=== PATIENT | female | born 1970 | race Asian ===

== ENCOUNTER 2016-05-01 21:28 | Inpatient (IN) | payer MEDICARE ==
[~2016-05-01] VITALS: Ht 147.3 cm; Wt 70.8 kg
[2016-05-01 22:50] LABS: BASO # 0.1 x10^3/uL (0.0-0.2); BASO % 1 % (0-3); EOS % 3 % (0-3); HEMATOCRIT 43.9 % (36.0-47.0); HEMOGLOBIN 14.7 g/dL (12.0-15.5); LYMPH # 6.8 x10^3/uL (1.0-4.8); LYMPH % 52 % (24-48); MEAN CORPUSCULAR HEMOGLOBIN 30 pg (25-35); MEAN CORPUSCULAR HGB CONC 34 g/dL (31-37); MEAN CORPUSCULAR VOLUME 90 fL (79-100); MONO % 4 % (0-9); NEUT % 41 % (31-73); PLATELET COUNT 302 x10^3/uL (140-400); RED CELL DISTRIBUTION WIDTH 12.9 % (11.5-14.5); WHITE BLOOD COUNT 13.2 x10^3/uL (4.0-11.0)
[2016-05-01] MEDS ORDERED: LABETALOL 20 MG/4 ML DISP.SYRIN. IVP ONE (23:00)
[2016-05-01] MEDS ORDERED: ASPIRIN 81 MG TAB.CHEW PO ONE (23:00)
[2016-05-01] MEDS ORDERED: DIAZEPAM 10 MG/2 ML DISP.SYRIN. IV ONE (23:00)
[2016-05-01] MEDS ORDERED: IV NORMAL SALINE 1000ML BAG 1,000 ML IV SCH (23:00)
[2016-05-01 23:06] LABS: BILIRUBIN,URINE NEGATIVE (NEG); GLUCOSE,URINE 100 mg/dL (NEG); NITRITE,URINE NEGATIVE (NEG); PROTEIN,URINE NEGATIVE (NEG-TRACE); UROBILINOGEN,URINE 0.2 mg/dL (0.2 mg/dL)
[2016-05-01 23:11] LABS: BACTERIA,URINE FEW /HPF (0-FEW); RBC,URINE OCC /HPF (0-2); SQUAMOUS EPITHELIAL CELL,UR FEW /LPF; WBC,URINE OCC /HPF (0-4)
[2016-05-01 23:40] LABS: CKMB INDEX 0.9 % (0-4); CKMB MASS 0.6 ng/mL (0.0-3.6)
[2016-05-01 23:41] LABS: ALBUMIN 3.6 g/dL (3.4-5.0); CALCIUM 9.8 mg/dL (8.5-10.1); CREATININE 0.9 mg/dL (0.6-1.0); DIRECT BILIRUBIN 0.1 mg/dL (0.0-0.2); GFR 67.4; TOTAL BILIRUBIN 0.4 mg/dL (0.2-1.0)
--- NOTE | 2016-05-02 | PHYS DOC ---
Past Medical History Past Medical History: Hypertension Past Surgical History: No Surgical History, Alcohol Use: None Drug Use: None Adult General Chief Complaint Chief Complaint: HYPERTENSION HPI HPI Patient is a 45 year old female who presents with complaint of headache and left-sided chest pain. Patient states that her symptoms started earlier this evening. Patient states that she took medication for migraine earlier, however she started getting problems with high blood pressure and chest pain starting this evening. Patient has history of hypertension and is currently on valsartan and amlodipine therapy. Patient states that she has not missed any of her medications. Patient states that she has had problems with elevated blood pressure in the past but denies any chest pain symptoms associated with her previous episodes. Patient has not had any fevers. Patient denies vision changes , nausea, or vomiting. Patient states that she has had associated shortness of breath with her symptoms. Patient rates her pain currently is 4 out of 10. Patient admits to family history of myocardial infarction. Review of Systems Review of Systems Constitutional: Denies fever or chills [] Eyes: Denies change in visual acuity, redness, or eye pain [] HENT: Denies nasal congestion or sore throat [] Respiratory: Shortness of breath [] Cardiovascular: Chest pain, denies edema [] GI: Denies abdominal pain, nausea, vomiting, bloody stools or diarrhea [] : Denies dysuria or hematuria [] Musculoskeletal: Denies back pain or joint pain [] Integument: Denies rash or skin lesions [] Neurologic: Denies headache, focal weakness or sensory changes [] Endocrine: Denies polyuria or polydipsia [] Current Medications Current Medications Current Medications Medications (Trade) Dose Ordered Sig/Darleen Start Time Stop Time Status Last Admin Dose Admin Aspirin 324 mg 324 mg 1X ONCE 05/01/16 23:00 05/01/16 23:01 DC 05/01/16 23:07 324 MG Diazepam (Valium) 5 mg 1X ONCE 05/01/16 23:00 05/01/16 23:01 DC 05/01/16 23:07 5 MG Info (Do NOT chart on this entry -- for MONITORING) 1 each PRN DAILY PRN 05/02/16 00:15 05/04/16 00:14 Iohexol (Omnipaque 300 Mg/ml) 75 ml 1X ONCE 05/02/16 00:30 05/02/16 00:31 Labetalol HCl (Normodyne) 20 mg 1X ONCE 05/01/16 23:00 05/01/16 23:01 DC Potassium Chloride (Klor-Con) 40 meq 1X ONCE 05/02/16 00:30 05/02/16 00:31 Sodium Chloride (Iv Sodium Chloride 0.9% 1000ml Bag) 1,000 ml @ 100 mls/hr Q10H 05/01/16 23:00 05/02/16 08:59 05/01/16 23:07 100 MLS/HR Allergies Allergies Allergies Coded Allergies Type Severity Reaction Last Updated Verified No Known Drug Allergies 09/22/14 No Physical Exam Physical Exam Constitutional: Alert, afebrile, appears in mild to moderate discomfort. [] HENT: Normocephalic, atraumatic, bilateral external ears normal, oropharynx moist, no oral exudates, nose normal. [] Eyes: PERRLA, EOMI, conjunctiva normal, no discharge. [] Neck: Normal range of motion, no tenderness, supple, no stridor. [] Cardiovascular: Tachycardia, regular rhythm, no murmur [] Lungs & Thorax: Bilateral breath sounds clear to auscultation [] Abdomen: Bowel sounds normal, soft, no tenderness, no masses, no pulsatile masses. [] Skin: Warm, dry, no erythema, no rash. [] Back: No tenderness, no CVA tenderness. [] Extremities: No tenderness, no cyanosis, no clubbing, ROM intact, no edema. [] Neurologic: Alert and oriented X 3, normal motor function, normal sensory function, no focal deficits noted. [] Current Patient Data Vital Signs Vital Signs Date Time Temp Pulse Resp B/P Pulse Ox O2 Delivery O2 Flow Rate FiO2 05/01/16 23:23 116 13 169/80 93 Room Air 05/01/16 21:35 97.4 97.4 Lab Values Laboratory Tests Test 05/01/16 22:05 05/01/16 22:55 05/01/16 23:01 05/01/16 23:05 White Blood Count 13.2x10^3/uL (4.0-11.0) H Red Blood Count 4.90x10^6/uL (3.50-5.40) Hemoglobin 14.7g/dL (12.0-15.5) Hematocrit 43.9% (36.0-47.0) Mean Corpuscular Volume 90fL (79-100) Mean Corpuscular Hemoglobin 30pg (25-35) Mean Corpuscular Hemoglobin Concent 34g/dL (31-37) Red Cell Distribution Width 12.9% (11.5-14.5) Platelet Count 302x10^3/uL (140-400) Neutrophils (%) (Auto) 41% (31-73) Lymphocytes (%) (Auto) 52% (24-48) H Monocytes (%) (Auto) 4% (0-9) Eosinophils (%) (Auto) 3% (0-3) Basophils (%) (Auto) 1% (0-3) Neutrophils # (Auto) 5.3x10^3uL (1.8-7.7) Lymphocytes # (Auto) 6.8x10^3/uL (1.0-4.8) H Monocytes # (Auto) 0.5x10^3/uL (0.0-1.1) Eosinophils # (Auto) 0.4x10^3/uL (0.0-0.7) Basophils # (Auto) 0.1x10^3/uL (0.0-0.2) Platelet Estimate Pending Urine Collection Type Unknown Urine Color Yellow Urine Clarity Clear Urine pH 6.0 Urine Specific [place] <=1.005 Urine Protein Negativemg/dL (NEG-TRACE) Urine Glucose (UA) 100mg/dL (NEG) Urine Ketones (Stick) Negativemg/dL (NEG) Urine Blood Moderate (NEG) Urine Nitrite Negative (NEG) Urine Bilirubin Negative (NEG) Urine Urobilinogen Dipstick 0.2mg/dL (0.2 mg/dL) Urine Leukocyte Esterase Negative (NEG) Urine RBC Occ/HPF (0-2) Urine WBC Occ/HPF (0-4) Urine Squamous Epithelial Cells Few/LPF Urine Bacteria Few/HPF (0-FEW) Urine Mucus Slight/LPF POC Urine HCG, Qualitative Hcg negative (Negative) Sodium Level 142mmol/L (136-145) Potassium Level 3.0mmol/L (3.5-5.1) L Chloride Level 105mmol/L (98-107) Carbon Dioxide Level 23mmol/L (21-32) Anion Gap 14 (6-14) Blood Urea Nitrogen 15mg/dL (7-20) Creatinine 0.9mg/dL (0.6-1.0) Estimated GFR (Cockcroft-Gault) 67.4 Glucose Level 200mg/dL (70-99) H Calcium Level 9.8mg/dL (8.5-10.1) Magnesium Level 2.0mg/dL (1.8-2.4) Total Bilirubin 0.4mg/dL (0.2-1.0) Direct Bilirubin 0.1mg/dL (0.0-0.2) Aspartate Amino Transferase (AST) 16U/L (15-37) Alanine Aminotransferase (ALT) 35U/L (14-59) Alkaline Phosphatase 82U/L (46-116) Creatine Kinase 68U/L (26-192) Creatine Kinase MB (Mass) 0.6ng/mL (0.0-3.6) Creatine Kinase MB Relative Index 0.9% (0-4) Troponin I Quantitative < 0.017ng/mL (0.000-0.055) MG-Rmf-P-Type Natriuretic Peptide 48pg/mL (0-124) Total Protein 8.0g/dL (6.4-8.2) Albumin 3.6g/dL (3.4-5.0) Laboratory Tests 05/01/16 22:05 Laboratory Tests 05/01/16 23:05 EKG EKG Interpreted by me: Heart rate 138, sinus tachycardia, leftward axis, no acute ST /T-wave abnormalities present [] Radiology/Procedures Radiology/Procedures One view AP chest x-ray interpreted by me: No infiltrate, no effusion, normal cardiac silhouette [] Course & Med Decision Making Course & Med Decision Making Pertinent Labs and Imaging studies reviewed. (See chart for details) Patient was given aspirin and Valium in the emergency department. The patient's blood pressure improved, however patient's heart rate continues to be significantly tachycardic. Patient also states that she is still having chest pain at this time. The patient will be admitted to the hospital for further evaluation and rule out severe acute cardiopulmonary process. I spoke with Dr. Adkins who accepted care patient in hospital. A CTA chest was ordered to rule out pulmonary embolism and results will be followed up by Dr. Mora. Dragon Disclaimer Dragon Disclaimer This electronic medical record was generated, in whole or in part, using a voice recognition dictation system. Departure Departure Impression: Primary Impression: Chest pain Additional Impressions: Malignant hypertension Hypokalemia Disposition: ADMITTED INPATIENT Admitting Physician: Kaleigh Adkins Condition: GUARDED Referrals: HARRY DE LEON MD (PCP) Problem Qualifiers Primary Impression: Chest pain Chest pain type: unspecified Qualified Code: R07.9 - Chest pain, unspecified ANGELINA ANDRADE MD May 02, 2016 00:00
[2016-05-02] MEDS ORDERED: CONTRAST GIVEN MC PRN (00:15)
[2016-05-02] MEDS ORDERED: POTASSIUM CHLORIDE 20 MEQ TABLET.ER. PO ONE (00:30)
[2016-05-02] MEDS ORDERED: IOHEXOL 300 MG/ML 75 ML VIAL IV ONE (00:30)
[2016-05-02] MEDS ORDERED: IV NORMAL SALINE 1000ML BAG 1,000 ML IV SCH (00:31)
[2016-05-02 00:33] LABS: % EOS 3 % (0-5); PLT ESTIMATE ADEQUATE (ADEQUATE)
[2016-05-02] MEDS ORDERED: ACETAMINOPHEN 325 MG TABLET. PO PRN (00:45)
[2016-05-02] MEDS ORDERED: LABETALOL 20 MG/4 ML DISP.SYRIN. IVP PRN (00:45)
[2016-05-02] MEDS ORDERED: ONDANSETRON PF 4 MG/2 ML VIAL. IV PRN ×2 (00:45→09:57)
--- NOTE | 2016-05-02 01:17 | RAD ---
PROCEDURE CT chest with contrast, pulmonary angiogram. HISTORY Shortness of air and chest pain. Tachycardia. TECHNIQUE Helical CT imaging of the chest is performed after 75 cc Omnipaque 300 IV contrast using pulmonary angiogram protocol. A coronal 3D MIP reconstruction is performed to better evaluate the pulmonary arteries. PQRS: One or more the following individualized dose reduction techniques were utilized for the study: 1. Automated exposure control. 2. Adjustment of the mA and/or kV according to patient size. 3. Use of iterative reconstruction technique. COMPARISON None. FINDINGS The pulmonary arteries are adequately contrast opacified. There is no CT evidence of pulmonary embolus. No thoracic aortic dissection. The thyroid is symmetric. No adenopathy is seen. Cardiac size normal, no pericardial effusion. There is no pleural effusion. The central airways are patent. Right mid lung calcified granuloma. There is minimal dependent atelectasis bilaterally. There is fatty infiltration of the liver. Tiny cyst upper pole of left kidney. No acute compression fracture in the thoracic spine. IMPRESSION 1. No CT evidence of pulmonary embolus. 2. Fatty infiltration of the liver. Electronically signed by: Gene Smart MD (May 02, 2016 01:15:25)
[2016-05-02 03:00] VITALS: BP 168/99
[2016-05-02] MEDS ORDERED: INFLUENZA VAX SCREEN BY RX. MC ONE (04:00)
--- NOTE | 2016-05-02 06:13 | EKG ---
[facility] [address] [place] [address] Test Date: 2016-05-01 Test Time: 21:38:54 Pat Name: MIKHAIL DE LEON Department: Room: Gender: F Garnishment Specialist: : [id number] Requested By: ANGELINA ANDRADE Order Number: [id number] Reading MD: Measurements Intervals [place] Rate: 138 P: 16 MO: 160 QRS: -9 QRSD: 74 T: -4 QT: 266 QTc: 403 Interpretive Statements SINUS TACHYCARDIA LEFTWARD AXIS ST & T ABNORMALITY, CONSIDER INFERIOR ISCHEMIA OR LEFT VENTRICULAR STRAIN RI6.01 Unconfirmed report No previous ECG available for comparison
[2016-05-02] MEDS ORDERED: AMLO10TA2 PO (07:18)
[2016-05-02] MEDS ORDERED: HYDR25TA9 PO (07:18)
[2016-05-02] MEDS ORDERED: VALS320T2 PO (07:18)
[2016-05-02 07:39] VITALS: BP 137/83
--- NOTE | 2016-05-02 07:41 | RAD ---
Portable chest, 05/01/2016: History: Left-sided chest pain and tachycardia The heart size and pulmonary vascularity are normal. No pulmonary infiltrates are seen. There is no evidence of pleural fluid. IMPRESSION: No acute cardiopulmonary abnormality is detected.
[2016-05-02] MEDS ORDERED: FLU VACC QUAD 2016-17 (36MOS+)/PF 0.5 ML SYRINGE. VAX IM ONE (09:00)
--- NOTE | 2016-05-02 10:03 | PDOC2 ---
PONCE BEEBE [employer] 05/02/16 1003: CARDIAC CONSULT DATE OF CONSULT Date of Consult DATE: 05/02/16 TIME: 10:00 REASON FOR CONSULT Reason for Consult: chest pain and hypertension REFERRING PHYSICIAN Referring Physician: Dr. Aditya Ramirez SOURCE Source: Chart review, Patient HISTORY OF PRESENT ILLNESS HISTORY OF PRESENT ILLNESS 45 year old female who developed substernal CP radiating to the left upper chest and into the left arm about 2030 yesterday, possibly while seated. She is unable to describe the pain and denies associated symptoms or a previous similar episode. SBP of 201 POA and denies missed dosages of anti-HTN meds. EKG without acute changes, troponin levels not consistent with ACS and CT scan of chest negative for pulmonary embolus. Tachycardia noted in ER and was admitted. Reason for Visit: CP PAST MEDICAL HISTORY Cardiovascular: HTN Pulmonary: No pertinent hx CENTRAL NERVOUS SYSTEM: Other (none) GI: No pertinent hx Heme/Onc: No pertinent hx Hepatobiliary: No pertinent hx Psych: No pertinent hx Musculoskeletal: No pain Rheumatologic: No pertinent hx Infectious disease: No pertinent hx ENT: No pertinent hx Renal/: No pertinent hx Endocrine: Other (? thyroid disease diagnosed in 1995 - took meds then stopped them) PAST SURGICAL HISTORY Past Surgical History: FAMILY HISTORY Family History: Coronary Artery Disease (brother of [place] age 50), Stroke (brother in his 50s) SOCIAL HISTORY Smoke: No ALCOHOL: none Drugs: None CURRENT MEDICATIONS CURRENT MEDICATIONS Current Medications Medications (Trade) Dose Ordered Sig/Darleen Route PRN Reason Start Time Stop Time Status Last Admin Dose Admin Aspirin 324 mg 324 mg 1X ONCE PO 05/01/16 23:00 05/01/16 23:01 DC 05/01/16 23:07 Sodium Chloride (Iv Sodium Chloride 0.9% 1000ml Bag) 1,000 ml @ 100 mls/hr Q10H IV 05/01/16 23:00 05/02/16 08:59 DC 05/01/16 23:07 Diazepam (Valium) 5 mg 1X ONCE IV 05/01/16 23:00 05/01/16 23:01 DC 05/01/16 23:07 Potassium Chloride (Klor-Con) 40 meq 1X ONCE PO 05/02/16 00:30 05/02/16 00:31 DC 05/02/16 01:32 Iohexol 75 ml 75 ml 1X ONCE IV 05/02/16 00:30 05/02/16 00:31 DC 05/02/16 00:55 Sodium Chloride (Iv Sodium Chloride 0.9% 1000ml Bag) 1,000 ml @ 75 mls/hr [id number] IV 05/02/16 00:31 05/03/16 00:30 05/02/16 00:31 ALLERGIES ALLERGIES: Coded Allergies: No Known Drug Allergies (Unverified , 09/22/14) ROS Review of System 14 point review with pertinent positives in HPI PHYSICAL EXAM General: Alert, Oriented X3, Cooperative HEENT: Atraumatic, PERRLA Lungs: Clear to auscultation, Normal air movement Heart: Regular rate, Normal S1, Normal S2, No murmurs, Other (no carotid bruits bilaterally) Abdomen: Normal bowel sounds, Soft Extremities: No cyanosis, No edema, No tenderness/swelling Skin: No rashes Neuro: Normal speech Psych/Mental Status: Mental status NL, Mood NL MUSCULOSKELETAL: No deformity VITALS VITALS Vital Signs Date Time Temp Pulse Resp B/P Pulse Ox O2 Delivery O2 Flow Rate FiO2 05/02/16 08:00 Room Air 05/02/16 07:39 98.1 102 20 137/83 97 98.1 LABS Lab: Laboratory Tests Test 05/01/16 22:05 05/01/16 22:55 05/01/16 23:01 05/01/16 23:05 White Blood Count 13.2x10^3/uL (4.0-11.0) Red Blood Count 4.90x10^6/uL (3.50-5.40) Hemoglobin 14.7g/dL (12.0-15.5) Hematocrit 43.9% (36.0-47.0) Mean Corpuscular Volume 90fL (79-100) Mean Corpuscular Hemoglobin 30pg (25-35) Mean Corpuscular Hemoglobin Concent 34g/dL (31-37) Red Cell Distribution Width 12.9% (11.5-14.5) Platelet Count 302x10^3/uL (140-400) Neutrophils (%) (Auto) 41% (31-73) Lymphocytes (%) (Auto) 52% (24-48) Monocytes (%) (Auto) 4% (0-9) Eosinophils (%) (Auto) 3% (0-3) Basophils (%) (Auto) 1% (0-3) Neutrophils # (Auto) 5.3x10^3uL (1.8-7.7) Lymphocytes # (Auto) 6.8x10^3/uL (1.0-4.8) Monocytes # (Auto) 0.5x10^3/uL (0.0-1.1) Eosinophils # (Auto) 0.4x10^3/uL (0.0-0.7) Basophils # (Auto) 0.1x10^3/uL (0.0-0.2) Segmented Neutrophils % 40% (35-66) Lymphocytes % 49% (24-48) Atypical Lymphocytes % (Manual) 5% (0-0) Monocytes % 3% (0-10) Eosinophils % 3% (0-5) Platelet Estimate Adequate (ADEQUATE) Urine Collection Type Unknown Urine Color Yellow Urine Clarity Clear Urine pH 6.0 Urine Specific [place] <=1.005 Urine Protein Negativemg/dL (NEG-TRACE) Urine Glucose (UA) 100mg/dL (NEG) Urine Ketones (Stick) Negativemg/dL (NEG) Urine Blood Moderate (NEG) Urine Nitrite Negative (NEG) Urine Bilirubin Negative (NEG) Urine Urobilinogen Dipstick 0.2mg/dL (0.2 mg/dL) Urine Leukocyte Esterase Negative (NEG) Urine RBC Occ/HPF (0-2) Urine WBC Occ/HPF (0-4) Urine Squamous Epithelial Cells Few/LPF Urine Bacteria Few/HPF (0-FEW) Urine Mucus Slight/LPF Bedside Urine HCG, Qualitative Hcg negative (Negative) D-Dimer (Eloisa) 0.27ug/mlFEU (0.00-0.50) Sodium Level 142mmol/L (136-145) Potassium Level 3.0mmol/L (3.5-5.1) Chloride Level 105mmol/L (98-107) Carbon Dioxide Level 23mmol/L (21-32) Anion Gap 14 (6-14) Blood Urea Nitrogen 15mg/dL (7-20) Creatinine 0.9mg/dL (0.6-1.0) Estimated GFR (Cockcroft-Gault) 67.4 Glucose Level 200mg/dL (70-99) Calcium Level 9.8mg/dL (8.5-10.1) Magnesium Level 2.0mg/dL (1.8-2.4) Total Bilirubin 0.4mg/dL (0.2-1.0) Direct Bilirubin 0.1mg/dL (0.0-0.2) Aspartate Amino Transf (AST/SGOT) 16U/L (15-37) Alanine Aminotransferase (ALT/SGPT) 35U/L (14-59) Alkaline Phosphatase 82U/L (46-116) Creatine Kinase 68U/L (26-192) Creatine Kinase MB (Mass) 0.6ng/mL (0.0-3.6) Creatine Kinase MB Relative Index 0.9% (0-4) Troponin I Quantitative < 0.017ng/mL (0.000-0.055) ZQ-Aod-L-Type Natriuretic Peptide 48pg/mL (0-124) Total Protein 8.0g/dL (6.4-8.2) Albumin 3.6g/dL (3.4-5.0) Test 05/02/16 06:55 Troponin I Quantitative 0.022ng/mL (0.000-0.055) IMAGES IMAGES CT chest - negative for pulm embolus CXR without acute findings EKG EKG no acute changes; ST ASSESSMENT/PLAN ASSESSMENT/PLAN 1. chest pain EKG and troponin levels not consistent with acute [place] CT scan of chest negative for pulm embolus ? demand mediated due to malignant HTN risk factors: HTN; obesity; family history of premature CAD - will send for Lexiscan MPI to evaluate for ischemia - can not exercise due to tachycardia check lipids 2. malignant HTN resume home meds, however, may need to d/c HCTZ due to hypokalemia recommend f/u evaluation with PCP echo to evaluate for LVH discussed reducing Na in diet 3. hypokalemia replaced 4. ? of thyroid disease given meds back in 1995 and then she stopped them ? etiology of tachycardia vs pain check TSH If MPI non-ischemic, may discharge later today; recommend f/u with PCP next week for BP check Problems: MARISSA ABAD MD 05/05/16 0950: CARDIAC CONSULT ALLERGIES ALLERGIES: Coded Allergies: No Known Drug Allergies (Unverified , 09/22/14) ASSESSMENT/PLAN ASSESSMENT/PLAN Late entry for 05/02/2016. Patient seen and examined. Agree with above nurse practitioner note. Physical woman presenting with atypical chest pain. On examination she has normal cardiac and vascular exam. Labs and medications reviewed. Myocardial perfusion studies within normal limits. No further cardiac testing necessary at this time. Thank you for this consultation. Problems: PONCE BEEBE APRN May 02, 2016 10:03 MARISSA ABAD MD May 05, 2016 09:50
[2016-05-02] MEDS ORDERED: REGADENOSON 0.4 MG/5 ML DISP.SYRIN. IV ONE (10:30)
[2016-05-02 10:34] LABS: CHOLESTEROL/HDL RATIO 4.7
[2016-05-02] MEDS ORDERED: HYDROCHLOROTHIAZIDE 25 MG TABLET PO SCH (11:00)
--- NOTE | 2016-05-02 12:28 | CARD ---
APPROVED REPORT EXAM: Two-dimensional and M-mode echocardiogram with Doppler and color Doppler. Other Information Quality : GoodHR: 99bpm Rhythm : NSR, Tachycardia INDICATION Pulmonary Hypertention Chest Pain 2D DIMENSIONS RVDd3.3 (2.9-3.5cm)Left Atrium(2D)3.8 (1.6-4.0cm) IVSd0.9 (0.7-1.1cm)Aortic Root(2D)2.6 (2.0-3.7cm) LVDd4.1 (3.9-5.9cm)LVOT Diameter2.0 (1.8-2.4cm) PWd0.8 (0.7-1.1cm)LVDs2.5 (2.5-4.0cm) FS (%) 38.9 %SV51.1 ml Aortic Valve AoV Peak Fidel.164.3cm/sAoV VTI28.8cm AO Peak GR.10.8mmHgLVOT Peak Fidel.113.4cm/s LVOT VTI 21.77cmAO Mean GR.5mmHg AMADOR (VMAX)2.84qv8LHC (VTI)2.41cm2 Mitral Valve MV E Ttwudysq212.6cm/sMV DECEL SGTC641lv MV A Utdixnol849.0cm/sMV E Mean Gr.5mmHg MV ILY72awX/A Ratio1.1 MVA (PHT)6.91cm2 TDI E/Lateral E'11.7E/Medial E'10.8 Pulmonary Valve PV Peak Hqdykjln648.3cm/sPV Peak Grad.8mmHg RVOT VTI18.1cm Tricuspid Valve TR P. Tihoeuov221wr/sRAP ZDSZQHDS7wvHx TR Peak Gr.87bfVfEEYU01otEt LEFT VENTRICLE The left ventricle is normal size. There is normal left ventricular wall thickness. Left ventricle sy stolic function is normal. The Ejection Fraction is 60-65%. There is normal LV segmental wall motion. The left ventricular diastolic function and filling is normal for age. There is no ventricular septa l defect visualized. RIGHT VENTRICLE The right ventricle is normal size. There is normal right ventricular wall thickness. The right ventr icular systolic function is normal. ATRIA The left atrium size is normal. The right atrium size is normal. The interatrial septum is intact wit h no evidence for an atrial septal defect or patent foramen ovale as noted on 2-D or Doppler imaging. AORTIC VALVE The aortic valve is normal in structure and function. The aortic valve is trileaflet. Doppler and Col or Flow revealed no significant aortic regurgitation. There is no significant aortic valvular stenosi s. MITRAL VALVE The mitral valve is normal in structure. There is no mitral valve stenosis. Doppler and Color Flow re vealed mild mitral regurgitation. TRICUSPID VALVE The tricuspid valve is normal in structure. Doppler and Color Flow revealed mild tricuspid regurgitat ion. The PA pressure was estimated at 36 mmHg. There is no tricuspid valve stenosis. PULMONIC VALVE The pulmonary valve is normal in structure and function. Doppler and Color Flow revealed no pulmonic valvular regurgitation. There is no pulmonic valvular stenosis. GREAT VESSELS The aortic root is normal in size. The ascending aorta is normal in size. Normal pulmonary venous bruce w (Doppler). The IVC is normal in size and collapses >50% with inspiration. PERICARDIAL EFFUSION There is no evidence of significant pericardial effusion. Critical Notification Critical Value: No <Conclusion> The left ventricle is normal size. Left ventricle systolic function is normal. The Ejection Fraction is 60-65%. There is no significant aortic valvular stenosis. Doppler and Color Flow revealed no significant aortic regurgitation. Doppler and Color Flow revealed mild mitral regurgitation. Doppler and Color Flow revealed mild tricuspid regurgitation. The PA pressure was estimated at 36 mmHg.
--- NOTE | 2016-05-02 13:39 | RAD ---
APPROVED REPORT Test Type: Pharmacological Stress Nurse/Tech: DERIC Fish RN Test Indications: Chest pain Cardiac History: HTN, see EHR Medications: see EHR Medical History: see EHR Resting ECG: SR Resting Heart Rate: 98 bpm Resting Blood Pressure: 170/82mmHg Pretest Chest Pain: No chest pain Nurse/Tech Notes Lungs CTA, heart tones WNL Consent: The procedure was explained to the patient in lay terms. Informed consent was witnessed. Dirk eout was entered into [facility]. History and Stress Test performed by ISABELA Reynolds ARRT (R) (N) Pharm. Details Pharmacologic stress testing was performed using 0.4mg per 5ml of regadenoson given intravenously ove r 7-10 seconds. Stress Symptoms No chest pain or symptoms. POST EXERCISE Reason for Termination: Infusion complete Max HR: 123 bpm 83% of Maximum Predicted HR: 147 bpm Chest Pain: No. Arrhythmia: No. ST Change: No. INTERPRETATION Stress EKG Conclusion: The resting EKG shows a sinus rhythm and mild nonspecific ST segment changes. The stress EKG shows no evidence of inducible ischemia. No EKG evidence of stress-induced ischemia. Imaging Protocol IMAGE PROTOCOL: Rest Tc-99m/stress Tc-99m 1 day Rest: Stress: Viability: Radiopharm.Tc99m HlspugrqyAe68u Sestamibi Liby65hPq 32mCi Img Date 05/02/2016 05/02/2016 Inj-Img Hbje29uzh. 45min. Rest Admin Site:IV - Left AntecubitalAdministrator:ISABELA Reynolds ARRT (R)(N) Stress Admin Site: IV - Right HandAdministrator: ISABELA Reynolds ARRT (R)(N) STRESS DATA End Diast. Vol.79.0mlAv. Heart Rate89.0bpm End Syst. Vol.24.0mlCO Index BSA0.0L/min Myocardial Arhx011.0gEject. Jvziczil21.0% Stress Rates Pk. Fill Rate5.10EDV/secLVtime Pk. Fill 179.32msec Pk. Empty Rate4.45ESV/secLVtime Pk. Eject95.38msec 03/18 Pk. Fill1.27EDV/sec Stress Scores Regional WT0.00Summed WT0.00 Regional WM0.00Summed WM3.00 LV Perfusion The rest images showed no significant defects. The stress images showed no significant defects. Nuclear imaging shows no reversible ischemia or infarct. Wall Motion Normal left ventricular systolic function with an ejection fraction of 70%. LV Perf. Quant 17 Seg. SSS0.00 17 Seg. SRS0.00 17 Seg. SDS0.00 Stress Defect Extent (% LAD)0.00Rest Defect Extent (% LAD)0.00Rev. Defect Extent (% LAD)0.00 Stress Defect Extent (% LCX) 0.00Rest Defect Extent (% LCX)0.00Rev. Defect Extent (% LCX)0.00 Stress Defect Extent (% RCA)0.00Rest Defect Extent (% RCA)0.00Rev. Defect Extent (% RCA)0.00 Stress Defect Extent (% RONNA)0.00Rest Defect Extent (% RONNA)0.00Rev. Defect Extent (% RONNA)0.00 Conclusion 1. No EKG evidence of stressed induced ischemia. 2. Nuclear imaging shows no reversible ischemia or infarct. 3. Normal left ventricular systolic function with an ejection fraction of 70%. 4. Low risk Lexiscan nuclear stress test.
[2016-05-02] MEDS ORDERED: IBUPROFEN 600 MG TABLET. PO PRN (14:00)
--- NOTE | 2016-05-02 14:00 | PDOC1 ---
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 By the time I see her today, MPI has been done by cards and is low risk study, CTA is neg for PE, but sinus tachycardia perists. TSH is NORMAL. Pt not heavy caffeine drinker, non smoker, only takes 3 BP meds at home and claims complaince, HCTZ has been stopped by cards bec of hypokalemia at 3.0. NO BB started yet. Pt on losartan and norvasc Pt seems to be eager to go home Multiple family members at bedside Past Medical History Cardiovascular: HTN Pulmonary: No pertinent hx CENTRAL NERVOUS SYSTEM: Other (none) GI: No pertinent hx Heme/Onc: No pertinent hx Hepatobiliary: No pertinent hx Psych: No pertinent hx Musculoskeletal: No pain Rheumatologic: No pertinent hx Infectious disease: No pertinent hx ENT: No pertinent hx Renal/: No pertinent hx Endocrine: Other (? thyroid disease diagnosed in 1995 - took meds then stopped them) Past Surgical History Past Surgical History: , No pertinent history Family History Family History: Coronary Artery Disease (brother of [place] age 50), Stroke (brother in his 50s) Social History Smoke: No ALCOHOL: none Drugs: None Current Problem List Problem List Problems Medical Problems: (1) Chest pain Status: Acute (2) Hypokalemia Status: Acute (3) Malignant hypertension Status: Acute Problems: Current Medications Current Medications Current Medications Aspirin 324 mg 324 mg 1X ONCE PO Last administered on 05/01/16 23:07; Start 05/01/16 at 23:00; Stop 05/01/16 at 23:01; Status DC Sodium Chloride (Iv Sodium Chloride 0.9% 1000ml Bag) 1,000 ml @ 100 mls/hr Q10H IV Last administered on 05/01/16 23:07; Start 05/01/16 at 23:00; Stop at 08:59; Status DC Labetalol HCl (Normodyne) 20 mg 1X ONCE IVP ; Start 05/01/16 at 23:00; Stop at 23:01; Status DC Diazepam (Valium) 5 mg 1X ONCE IV Last administered on 05/01/16 23:07; Start 05/01/16 at 23:00; Stop 05/01/16 at 23:01; Status DC Potassium Chloride (Klor-Con) 40 meq 1X ONCE PO Last administered on 01:32; Start 05/02/16 at 00:30; Stop 05/02/16 at 00:31; Status DC Iohexol (Omnipaque 300 Mg/ml) 75 ml 1X ONCE IV Last administered on 05/02/16 00:55; Start 05/02/16 at 00:30; Stop 05/02/16 at 00:31; Status DC Info (Do NOT chart on this entry -- for MONITORING) 1 each PRN DAILY PRN MC SEE COMMENTS; Start 05/02/16 at 00:15; Stop 05/04/16 at 00:14 Ondansetron HCl 4 mg 4 mg PRN Q8HRS PRN IV NAUSEA/VOMITING; Start 05/02/16 at 00:45; Stop 05/02/16 at 09:59; Status DC Sodium Chloride (Iv Sodium Chloride 0.9% 1000ml Bag) 1,000 ml @ 75 mls/hr [id number] IV Last administered on 05/02/16 00:31; Start 05/02/16 at 00:31; Stop 05/03/16 at 00:30 Acetaminophen (Tylenol) 650 mg PRN Q4HRS PRN PO FEVER; Start 05/02/16 at 00:45 ; Stop 05/03/16 at 00:44 Labetalol HCl (Normodyne) 20 mg PRN Q2HR PRN IVP HYPERTENSION, SEE COMMENTS; Start 05/02/16 at 00:45 Info (Do NOT chart on this placeholder) 1 each 1X ONCE MC ; Start 05/02/16 at 04:00; Stop 05/02/16 at 04:01; Status UNV Influenza Virus Vaccine Quadrival (Fluarix Quad [id number] Syringe) 0.5 ml ONCE ONCE VAX IM ; Start 05/02/16 at 09:00; Stop 05/02/16 at 09:01; Status DC Ondansetron HCl (Zofran) 4 mg PRN Q6HRS PRN IV NAUSEA/VOMITING; Start 05/02/16 at 09:57 Amlodipine Besylate (Norvasc) 10 mg DAILY PO ; Start 05/03/16 at 09:00 Hydrochlorothiazide (Hydrodiuril) 25 mg DAILY PO ; Start 05/02/16 at 11:00 Losartan Potassium (Cozaar) 100 mg DAILY PO ; Start 05/03/16 at 09:00 Regadenoson (Lexiscan) 0.4 mg 1X ONCE IV Last administered on 05/02/16t 11:39 ; Start 05/02/16 at 10:30; Stop 05/02/16 at 10:31; Status DC Active Scripts Active Reported Diovan (Valsartan) 320 Mg Tablet 320 Mg PO DAILY Hydrochlorothiazide Tablet (Hydrochlorothiazide) 25 Mg Tablet 1 Tab PO DAILY Amlodipine Besylate 10 Mg Tablet 10 Mg PO DAILY Allergies Allergies: Coded Allergies: No Known Drug Allergies (Unverified , 09/22/14) ROS General: No: Appetite, Chills, Fatigue, Malaise, Night Sweats, Other PSYCHOLOGICAL ROS: No: Anxiety, Behavioral Disorder, Concentration difficultie , Decreased libido, Depression, Disorientation, Hallucinations, Hostility, Irritablity, Memory difficulties, Mood Swings, Obsessive thoughts, Other, Physical abuse, Sexual abuse, Sleep disturbances, Suicidal ideation Eyes: No Blurry vision, No Decreased vision, No Double vision, No Dry eyes, No Excessive tearing, No Eye Pain, No Itchy Eyes, No Loss of vision, No Other, No Photophobia, No Scotomata, No Uses contacts, No Uses glasses HEENT: No: Epistaxis, Heacaches, Hearing change, Nasal congestion, Nasal discharge, Oral lesions, Other, Sinus pain, Sneezing, Snoring, Sore Throat, Tinnitus, Vertigo, Visual Changes, Vocal changes ALLERGY AND IMMUNOLOGY: No: Hives, Insect Bite Sensitivity, Itchy/Watery Eyes, Nasal Congestion, Other, Post Nasal Drip, Seasonal Allergies Hematological and Lymphatic: No: Bleeding Problems, Blood Clots, Blood Transfusions, Brusing, Night Sweats, Other, Pallor, Swollen Lymph Nodes ENDOCRINE: No: Breast Changes, Galactorrhea, Hair Pattern Changes, Hot Flashes , Malaise/lethargy, Mood Swings, Other, Palpitations, Polydipsia/polyuria, Skin Changes, Temperature Intolerance, Unexpected Weight Changes Breast: No New/Changing Breast Lumps, No Nipple changes, No Nipple discharge, No Other Respiratory: No: Cough, Hemoptysis, Orthopnea, Other, Pleuritic Pain, SOB with excertion, Shortness of breath, Sputum Changes, Stridor, Tachypnea, Wheezing Cardiovascular: yes Chest Pain, No Edema, No Lt Headedness, No Orthopnea, No Other, No Palpitations, No Paroxysmal Noc. Dyspnea Gastrointestinal: No Abdominal Pain, No Constipation, No Diarrhea, No Hematochezia, No Melena, No Nausea, No Other, No Vomiting Genitourinary: No , No , No , No , No , No , No , No Discharge, No Dysuria, No Flank Pain, No Frequency, No Hematuria, No Incontinence, No Other, No Pain, No Retention, No Urgency Musculoskeletal: No Gait Disturbance, No Joint Pain, No Joint Stiffness, No Joint Swelling, No Muscle Pain, No Muscular Weakness, No Other, No Pain In:, No Swelling In: Neurological: No Behavorial Changes, No Bowel/Bladder ControlChng, No Confusion , No Dizziness, No Gait Disturbance, No Headaches, No Impaired Coord/balance, No Memory Loss, No Numbness/Tingling, No Other, No Seizures, No Speech Problems , No Tremors, No Visual Changes, No Weakness Skin: No Acne, No Dry Skin, No Eczema, No Hair Changes, No Lumps, No Mole Changes, No Mottling, No Nail Changes, No Other, No Pruritus, No Rash, No Skin Lesion Changes Physical Exam General: Alert HEENT: Atraumatic, PERRLA Heart: S1S2, RRR, other (hr 90S AT REST) Cardiovascular: S1, S2 Breasts: Normal Abdomen: Normal bowel sounds, Soft, No tenderness, No hepatosplenomegaly, No masses PELVIC: Nml ext genitalia Extremities: No clubbing, No cyanosis, No edema, Normal pulses, No tenderness/ swelling Skin: No rashes, No breakdown, No significant lesion Neuro: Normal gait, Normal speech, Strength at 5/5 X4 ext, Normal tone, Sensation intact, Cranial nerves 3-12 NL, Reflexes 2+ Psych/Mental Status: Mental status NL, Mood NL Vitals Vitals Vital Signs Date Time Temp Pulse Resp B/P Pulse Ox O2 Delivery O2 Flow Rate FiO2 05/02/16 08:00 Room Air 05/02/16 07:39 98.1 102 20 137/83 97 98.1 Labs Labs Laboratory Tests Test 05/01/16 22:05 05/01/16 22:55 05/01/16 23:01 05/01/16 23:05 White Blood Count 13.2x10^3/uL (4.0-11.0) Red Blood Count 4.90x10^6/uL (3.50-5.40) Hemoglobin 14.7g/dL (12.0-15.5) Hematocrit 43.9% (36.0-47.0) Mean Corpuscular Volume 90fL (79-100) Mean Corpuscular Hemoglobin 30pg (25-35) Mean Corpuscular Hemoglobin Concent 34g/dL (31-37) Red Cell Distribution Width 12.9% (11.5-14.5) Platelet Count 302x10^3/uL (140-400) Neutrophils (%) (Auto) 41% (31-73) Lymphocytes (%) (Auto) 52% (24-48) Monocytes (%) (Auto) 4% (0-9) Eosinophils (%) (Auto) 3% (0-3) Basophils (%) (Auto) 1% (0-3) Neutrophils # (Auto) 5.3x10^3uL (1.8-7.7) Lymphocytes # (Auto) 6.8x10^3/uL (1.0-4.8) Monocytes # (Auto) 0.5x10^3/uL (0.0-1.1) Eosinophils # (Auto) 0.4x10^3/uL (0.0-0.7) Basophils # (Auto) 0.1x10^3/uL (0.0-0.2) Segmented Neutrophils % 40% (35-66) Lymphocytes % 49% (24-48) Atypical Lymphocytes % (Manual) 5% (0-0) Monocytes % 3% (0-10) Eosinophils % 3% (0-5) Platelet Estimate Adequate (ADEQUATE) Urine Collection Type Unknown Urine Color Yellow Urine Clarity Clear Urine pH 6.0 Urine Specific [place] <=1.005 Urine Protein Negativemg/dL (NEG-TRACE) Urine Glucose (UA) 100mg/dL (NEG) Urine Ketones (Stick) Negativemg/dL (NEG) Urine Blood Moderate (NEG) Urine Nitrite Negative (NEG) Urine Bilirubin Negative (NEG) Urine Urobilinogen Dipstick 0.2mg/dL (0.2 mg/dL) Urine Leukocyte Esterase Negative (NEG) Urine RBC Occ/HPF (0-2) Urine WBC Occ/HPF (0-4) Urine Squamous Epithelial Cells Few/LPF Urine Bacteria Few/HPF (0-FEW) Urine Mucus Slight/LPF Bedside Urine HCG, Qualitative Hcg negative (Negative) D-Dimer (Eloisa) 0.27ug/mlFEU (0.00-0.50) Sodium Level 142mmol/L (136-145) Potassium Level 3.0mmol/L (3.5-5.1) Chloride Level 105mmol/L (98-107) Carbon Dioxide Level 23mmol/L (21-32) Anion Gap 14 (6-14) Blood Urea Nitrogen 15mg/dL (7-20) Creatinine 0.9mg/dL (0.6-1.0) Estimated GFR (Cockcroft-Gault) 67.4 Glucose Level 200mg/dL (70-99) Calcium Level 9.8mg/dL (8.5-10.1) Magnesium Level 2.0mg/dL (1.8-2.4) Total Bilirubin 0.4mg/dL (0.2-1.0) Direct Bilirubin 0.1mg/dL (0.0-0.2) Aspartate Amino Transf (AST/SGOT) 16U/L (15-37) Alanine Aminotransferase (ALT/SGPT) 35U/L (14-59) Alkaline Phosphatase 82U/L (46-116) Creatine Kinase 68U/L (26-192) Creatine Kinase MB (Mass) 0.6ng/mL (0.0-3.6) Creatine Kinase MB Relative Index 0.9% (0-4) Troponin I Quantitative < 0.017ng/mL (0.000-0.055) OK-Fhl-E-Type Natriuretic Peptide 48pg/mL (0-124) Total Protein 8.0g/dL (6.4-8.2) Albumin 3.6g/dL (3.4-5.0) Test 05/02/16 06:55 2/17/17 12:30 Troponin I Quantitative 0.022ng/mL (0.000-0.055) < 0.017ng/mL (0.000-0.055) Triglycerides Level 260mg/dL (0-150) Cholesterol Level 278mg/dL (0-200) LDL Cholesterol, Calculated 167mg/dL (0-100) VLDL Cholesterol, Calculated 52mg/dL (0-40) HDL Cholesterol 59mg/dL (40-60) Cholesterol/HDL Ratio 4.7 Thyroid Stimulating Hormone (TSH) 3.261uIU/mL (0.358-3.74) Laboratory Tests Test 05/01/16 22:05 05/01/16 22:55 05/01/16 23:01 05/01/16 23:05 White Blood Count 13.2x10^3/uL (4.0-11.0) Red Blood Count 4.90x10^6/uL (3.50-5.40) Hemoglobin 14.7g/dL (12.0-15.5) Hematocrit 43.9% (36.0-47.0) Mean Corpuscular Volume 90fL (79-100) Mean Corpuscular Hemoglobin 30pg (25-35) Mean Corpuscular Hemoglobin Concent 34g/dL (31-37) Red Cell Distribution Width 12.9% (11.5-14.5) Platelet Count 302x10^3/uL (140-400) Neutrophils (%) (Auto) 41% (31-73) Lymphocytes (%) (Auto) 52% (24-48) Monocytes (%) (Auto) 4% (0-9) Eosinophils (%) (Auto) 3% (0-3) Basophils (%) (Auto) 1% (0-3) Neutrophils # (Auto) 5.3x10^3uL (1.8-7.7) Lymphocytes # (Auto) 6.8x10^3/uL (1.0-4.8) Monocytes # (Auto) 0.5x10^3/uL (0.0-1.1) Eosinophils # (Auto) 0.4x10^3/uL (0.0-0.7) Basophils # (Auto) 0.1x10^3/uL (0.0-0.2) Segmented Neutrophils % 40% (35-66) Lymphocytes % 49% (24-48) Atypical Lymphocytes % (Manual) 5% (0-0) Monocytes % 3% (0-10) Eosinophils % 3% (0-5) Platelet Estimate Adequate (ADEQUATE) Urine Collection Type Unknown Urine Color Yellow Urine Clarity Clear Urine pH 6.0 Urine Specific [place] <=1.005 Urine Protein Negativemg/dL (NEG-TRACE) Urine Glucose (UA) 100mg/dL (NEG) Urine Ketones (Stick) Negativemg/dL (NEG) Urine Blood Moderate (NEG) Urine Nitrite Negative (NEG) Urine Bilirubin Negative (NEG) Urine Urobilinogen Dipstick 0.2mg/dL (0.2 mg/dL) Urine Leukocyte Esterase Negative (NEG) Urine RBC Occ/HPF (0-2) Urine WBC Occ/HPF (0-4) Urine Squamous Epithelial Cells Few/LPF Urine Bacteria Few/HPF (0-FEW) Urine Mucus Slight/LPF Bedside Urine HCG, Qualitative Hcg negative (Negative) D-Dimer (Eloisa) 0.27ug/mlFEU (0.00-0.50) Sodium Level 142mmol/L (136-145) Potassium Level 3.0mmol/L (3.5-5.1) Chloride Level 105mmol/L (98-107) Carbon Dioxide Level 23mmol/L (21-32) Anion Gap 14 (6-14) Blood Urea Nitrogen 15mg/dL (7-20) Creatinine 0.9mg/dL (0.6-1.0) Estimated GFR (Cockcroft-Gault) 67.4 Glucose Level 200mg/dL (70-99) Calcium Level 9.8mg/dL (8.5-10.1) Magnesium Level 2.0mg/dL (1.8-2.4) Total Bilirubin 0.4mg/dL (0.2-1.0) Direct Bilirubin 0.1mg/dL (0.0-0.2) Aspartate Amino Transf (AST/SGOT) 16U/L (15-37) Alanine Aminotransferase (ALT/SGPT) 35U/L (14-59) Alkaline Phosphatase 82U/L (46-116) Creatine Kinase 68U/L (26-192) Creatine Kinase MB (Mass) 0.6ng/mL (0.0-3.6) Creatine Kinase MB Relative Index 0.9% (0-4) Troponin I Quantitative < 0.017ng/mL (0.000-0.055) HQ-Oot-X-Type Natriuretic Peptide 48pg/mL (0-124) Total Protein 8.0g/dL (6.4-8.2) Albumin 3.6g/dL (3.4-5.0) Test 05/02/16 06:55 05/02/16 12:30 Troponin I Quantitative 0.022ng/mL (0.000-0.055) < 0.017ng/mL (0.000-0.055) Triglycerides Level 260mg/dL (0-150) Cholesterol Level 278mg/dL (0-200) LDL Cholesterol, Calculated 167mg/dL (0-100) VLDL Cholesterol, Calculated 52mg/dL (0-40) HDL Cholesterol 59mg/dL (40-60) Cholesterol/HDL Ratio 4.7 Thyroid Stimulating Hormone (TSH) 3.261uIU/mL (0.358-3.74) VTE Prophylaxis Ordered VTE Prophylaxis Devices: Yes VTE Pharmacological Prophylaxi: Yes Assessment/Plan Assessment/Plan 1. Chest pain, non cardiac - normal MPI 2. SInus tcahycradia with normal TSH 3. HTN urgency POA - 4. Hypokalemia likely sec to HCTZ PLAN: Agree with replacinh HCTZ with another BP agent BB might be in order Await cards rounds Nghia RN EIther keep overnight after starting BB to monitor or home today with OP ff up PCP OBS Nghia HENDERSON and family and pt NIGEL GARCIA MD May 02, 2016 14:00
[2016-05-02 14:22] VITALS: BP 146/81
[2016-05-02 15:06] VITALS: BP 128/65
[2016-05-02] MEDS ORDERED: LOSA1TAB17 PO (15:49)
--- NOTE | 2016-05-02 15:51 | PDOC3 ---
Discharge Summary Visit Information Date of Admission: May 01, 2016 Date of Discharge: May 02, 2016 Admitting Diagnosis Comment: 1. Chest pain, non cardiac - normal MPI 2. SInus tcahycradia with normal TSH 3. HTN urgency POA - 4. Hypokalemia likely sec to HCTZ Final Diagnosis Problems Medical Problems: (1) Chest pain Status: Acute (2) Hypokalemia Status: Acute (3) Malignant hypertension Status: Acute Brief Hospital Course Allergies Allergies Coded Allergies Type Severity Reaction Last Updated Verified No Known Drug Allergies 09/22/14 No Vital Signs Vital Signs Date Time Temp Pulse Resp B/P Pulse Ox O2 Delivery O2 Flow Rate FiO2 05/02/16 15:06 98.2 89 20 128/65 97 Room Air 98.2 Lab Results Laboratory Tests Test 05/01/16 22:05 05/01/16 22:55 05/01/16 23:01 05/01/16 23:05 White Blood Count 13.2x10^3/uL (4.0-11.0) Red Blood Count 4.90x10^6/uL (3.50-5.40) Hemoglobin 14.7g/dL (12.0-15.5) Hematocrit 43.9% (36.0-47.0) Mean Corpuscular Volume 90fL (79-100) Mean Corpuscular Hemoglobin 30pg (25-35) Mean Corpuscular Hemoglobin Concent 34g/dL (31-37) Red Cell Distribution Width 12.9% (11.5-14.5) Platelet Count 302x10^3/uL (140-400) Neutrophils (%) (Auto) 41% (31-73) Lymphocytes (%) (Auto) 52% (24-48) Monocytes (%) (Auto) 4% (0-9) Eosinophils (%) (Auto) 3% (0-3) Basophils (%) (Auto) 1% (0-3) Neutrophils # (Auto) 5.3x10^3uL (1.8-7.7) Lymphocytes # (Auto) 6.8x10^3/uL (1.0-4.8) Monocytes # (Auto) 0.5x10^3/uL (0.0-1.1) Eosinophils # (Auto) 0.4x10^3/uL (0.0-0.7) Basophils # (Auto) 0.1x10^3/uL (0.0-0.2) Segmented Neutrophils % 40% (35-66) Lymphocytes % 49% (24-48) Atypical Lymphocytes % (Manual) 5% (0-0) Monocytes % 3% (0-10) Eosinophils % 3% (0-5) Platelet Estimate Adequate (ADEQUATE) Urine Collection Type Unknown Urine Color Yellow Urine Clarity Clear Urine pH 6.0 Urine Specific [place] <=1.005 Urine Protein Negativemg/dL (NEG-TRACE) Urine Glucose (UA) 100mg/dL (NEG) Urine Ketones (Stick) Negativemg/dL (NEG) Urine Blood Moderate (NEG) Urine Nitrite Negative (NEG) Urine Bilirubin Negative (NEG) Urine Urobilinogen Dipstick 0.2mg/dL (0.2 mg/dL) Urine Leukocyte Esterase Negative (NEG) Urine RBC Occ/HPF (0-2) Urine WBC Occ/HPF (0-4) Urine Squamous Epithelial Cells Few/LPF Urine Bacteria Few/HPF (0-FEW) Urine Mucus Slight/LPF Bedside Urine HCG, Qualitative Hcg negative (Negative) D-Dimer (Eloisa) 0.27ug/mlFEU (0.00-0.50) Sodium Level 142mmol/L (136-145) Potassium Level 3.0mmol/L (3.5-5.1) Chloride Level 105mmol/L (98-107) Carbon Dioxide Level 23mmol/L (21-32) Anion Gap 14 (6-14) Blood Urea Nitrogen 15mg/dL (7-20) Creatinine 0.9mg/dL (0.6-1.0) Estimated GFR (Cockcroft-Gault) 67.4 Glucose Level 200mg/dL (70-99) Calcium Level 9.8mg/dL (8.5-10.1) Magnesium Level 2.0mg/dL (1.8-2.4) Total Bilirubin 0.4mg/dL (0.2-1.0) Direct Bilirubin 0.1mg/dL (0.0-0.2) Aspartate Amino Transf (AST/SGOT) 16U/L (15-37) Alanine Aminotransferase (ALT/SGPT) 35U/L (14-59) Alkaline Phosphatase 82U/L (46-116) Creatine Kinase 68U/L (26-192) Creatine Kinase MB (Mass) 0.6ng/mL (0.0-3.6) Creatine Kinase MB Relative Index 0.9% (0-4) Troponin I Quantitative < 0.017ng/mL (0.000-0.055) RD-Ecx-O-Type Natriuretic Peptide 48pg/mL (0-124) Total Protein 8.0g/dL (6.4-8.2) Albumin 3.6g/dL (3.4-5.0) Test 05/02/16 06:55 05/02/16 12:30 Troponin I Quantitative 0.022ng/mL (0.000-0.055) < 0.017ng/mL (0.000-0.055) Triglycerides Level 260mg/dL (0-150) Cholesterol Level 278mg/dL (0-200) LDL Cholesterol, Calculated 167mg/dL (0-100) VLDL Cholesterol, Calculated 52mg/dL (0-40) HDL Cholesterol 59mg/dL (40-60) Cholesterol/HDL Ratio 4.7 Thyroid Stimulating Hormone (TSH) 3.261uIU/mL (0.358-3.74) Laboratory Tests Test 05/01/16 22:05 05/01/16 22:55 05/01/16 23:01 05/01/16 23:05 White Blood Count 13.2x10^3/uL (4.0-11.0) Red Blood Count 4.90x10^6/uL (3.50-5.40) Hemoglobin 14.7g/dL (12.0-15.5) Hematocrit 43.9% (36.0-47.0) Mean Corpuscular Volume 90fL (79-100) Mean Corpuscular Hemoglobin 30pg (25-35) Mean Corpuscular Hemoglobin Concent 34g/dL (31-37) Red Cell Distribution Width 12.9% (11.5-14.5) Platelet Count 302x10^3/uL (140-400) Neutrophils (%) (Auto) 41% (31-73) Lymphocytes (%) (Auto) 52% (24-48) Monocytes (%) (Auto) 4% (0-9) Eosinophils (%) (Auto) 3% (0-3) Basophils (%) (Auto) 1% (0-3) Neutrophils # (Auto) 5.3x10^3uL (1.8-7.7) Lymphocytes # (Auto) 6.8x10^3/uL (1.0-4.8) Monocytes # (Auto) 0.5x10^3/uL (0.0-1.1) Eosinophils # (Auto) 0.4x10^3/uL (0.0-0.7) Basophils # (Auto) 0.1x10^3/uL (0.0-0.2) Segmented Neutrophils % 40% (35-66) Lymphocytes % 49% (24-48) Atypical Lymphocytes % (Manual) 5% (0-0) Monocytes % 3% (0-10) Eosinophils % 3% (0-5) Platelet Estimate Adequate (ADEQUATE) Urine Collection Type Unknown Urine Color Yellow Urine Clarity Clear Urine pH 6.0 Urine Specific [place] <=1.005 Urine Protein Negativemg/dL (NEG-TRACE) Urine Glucose (UA) 100mg/dL (NEG) Urine Ketones (Stick) Negativemg/dL (NEG) Urine Blood Moderate (NEG) Urine Nitrite Negative (NEG) Urine Bilirubin Negative (NEG) Urine Urobilinogen Dipstick 0.2mg/dL (0.2 mg/dL) Urine Leukocyte Esterase Negative (NEG) Urine RBC Occ/HPF (0-2) Urine WBC Occ/HPF (0-4) Urine Squamous Epithelial Cells Few/LPF Urine Bacteria Few/HPF (0-FEW) Urine Mucus Slight/LPF Bedside Urine HCG, Qualitative Hcg negative (Negative) D-Dimer (Eloisa) 0.27ug/mlFEU (0.00-0.50) Sodium Level 142mmol/L (136-145) Potassium Level 3.0mmol/L (3.5-5.1) Chloride Level 105mmol/L (98-107) Carbon Dioxide Level 23mmol/L (21-32) Anion Gap 14 (6-14) Blood Urea Nitrogen 15mg/dL (7-20) Creatinine 0.9mg/dL (0.6-1.0) Estimated GFR (Cockcroft-Gault) 67.4 Glucose Level 200mg/dL (70-99) Calcium Level 9.8mg/dL (8.5-10.1) Magnesium Level 2.0mg/dL (1.8-2.4) Total Bilirubin 0.4mg/dL (0.2-1.0) Direct Bilirubin 0.1mg/dL (0.0-0.2) Aspartate Amino Transf (AST/SGOT) 16U/L (15-37) Alanine Aminotransferase (ALT/SGPT) 35U/L (14-59) Alkaline Phosphatase 82U/L (46-116) Creatine Kinase 68U/L (26-192) Creatine Kinase MB (Mass) 0.6ng/mL (0.0-3.6) Creatine Kinase MB Relative Index 0.9% (0-4) Troponin I Quantitative < 0.017ng/mL (0.000-0.055) ZI-Mbv-Y-Type Natriuretic Peptide 48pg/mL (0-124) Total Protein 8.0g/dL (6.4-8.2) Albumin 3.6g/dL (3.4-5.0) Test 05/02/16 06:55 05/02/16 12:30 Troponin I Quantitative 0.022ng/mL (0.000-0.055) < 0.017ng/mL (0.000-0.055) Triglycerides Level 260mg/dL (0-150) Cholesterol Level 278mg/dL (0-200) LDL Cholesterol, Calculated 167mg/dL (0-100) VLDL Cholesterol, Calculated 52mg/dL (0-40) HDL Cholesterol 59mg/dL (40-60) Cholesterol/HDL Ratio 4.7 Thyroid Stimulating Hormone (TSH) 3.261uIU/mL (0.358-3.74) Brief Hospital Course Ms. 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 By the time I see her today, MPI has been done by cards and is low risk study, CTA is neg for PE, but sinus tachycardia perists. TSH is NORMAL. Pt not heavy caffeine drinker, non smoker, only takes 3 BP meds at home and claims complaince , HCTZ has been stopped by cards bec of hypokalemia at 3.0. NO BB started yet. Pt on losartan and norvasc Pt seems to be eager to go home Multiple family members at bedside Discharge Information Condition at Discharge: Improved, Stable Follow Up: Weeks (4 weeks pCP re BP) Disposition/Orders: D/C to Home Scheduled Amlodipine Besylate (Amlodipine Besylate) 10 MG PO DAILY (Reported) Hydrochlorothiazide (Hydrochlorothiazide Tablet ) 1 TAB PO DAILY (Reported) Valsartan (Diovan) 320 MG PO DAILY (Reported) NIGEL GARCIA MD May 02, 2016 15:50
[2016-05-03] MEDS ORDERED: LOSARTAN POTASSIUM 50 MG TABLET. PO SCH (09:00)
[2016-05-03] MEDS ORDERED: AMLODIPINE BESYLATE 10 MG TABLET PO SCH (09:00)
== END 2016-05-03 15:11 | disposition home or self-care (01) | DRG 304 ==
LOC: ER 21:28 → 6 SOUTH 05-02 00:39
PROVIDERS: ADMIT Internal Medicine; ATTEND Internal Medicine
DX: I16.0 Hypertensive urgency (principal); N17.0 Acute kidney failure with tubular necrosis; R65.10 Systemic inflammatory response syndrome (SIRS) of non-infectious origin without acute organ dysfunction; R07.89 Other chest pain; I10 Essential (primary) hypertension; E87.6 Hypokalemia; E66.9 Obesity, unspecified; K76.0 Fatty (change of) liver, not elsewhere classified; G43.909 Migraine, unspecified, not intractable, without status migrainosus; Z79.899 Other long term (current) drug therapy; Z68.32 Body mass index [BMI] 32.0-32.9, adult; Z82.3 Family history of stroke; Z82.49 Family history of ischemic heart disease and other diseases of the circulatory system; R00.0 Tachycardia, unspecified
CPT/HCPCS: 36415; 71010; 71275; 78452; 80048; 80061; 80076; 81001; 81025; 82553; 83735; 83880; 84443; 84484; 85007; 85027; 85379; 90686; 93005; 93017; 93306; 96361; 96374; 96375; 96376; A9500; J2785; J3360; J7030; Q9967; 99285-25

== ENCOUNTER 2017-03-15 07:44 | Emergency (ER) | payer OTHER, MEDICARE ==
[2017-03-15 08:42] LABS: ADD MAN DIFF? NO
[2017-03-15 08:45] LABS: BASO # 0.1 x10^3/uL (0.0-0.2); BASO % 1 % (0-3); EOS # 0.3 x10^3/uL (0.0-0.7); EOS % 3 % (0-3); HEMATOCRIT 46.1 % (36.0-47.0); LYMPH # 2.4 x10^3/uL (1.0-4.8); LYMPH % 23 % (24-48); MEAN CORPUSCULAR HEMOGLOBIN 31 pg (25-35); MEAN CORPUSCULAR HGB CONC 35 g/dL (31-37); MEAN CORPUSCULAR VOLUME 90 fL (79-100); MONO # 0.5 x10^3/uL (0.0-1.1); MONO % 5 % (0-9); NEUT # 7.2 x10^3uL (1.8-7.7); NEUT % 69 % (31-73); PLATELET COUNT 270 x10^3/uL (140-400); RED BLOOD COUNT 5.14 x10^6/uL (3.50-5.40); RED CELL DISTRIBUTION WIDTH 12.9 % (11.5-14.5); WHITE BLOOD COUNT 10.5 x10^3/uL (4.0-11.0)
[2017-03-15] MEDS ORDERED: CONTRAST GIVEN MC (08:45)
[2017-03-15] MEDS: IV NORMAL SALINE 1000ML BAG 1,000 ML IV (08:51)
[2017-03-15] MEDS: fentaNYL PF VIAL 100 MCG/2 ML VIAL IV (08:53)
[2017-03-15 09:00] LABS: INR 0.9 (0.8-1.1); PARTIAL THROMBOPLASTIN TIME 25 SEC (24-38); PROTHROMBIN TIME PATIENT 11.7 SEC (11.7-14.0)
[2017-03-15 09:05] LABS: ALBUMIN/GLOBULIN RATIO 0.9 (1.0-1.7); ALK PHOS 75 U/L (46-116); ALT (SGPT) 29 U/L (14-59); ANION GAP 12 (6-14); AST (SGOT) 22 U/L (15-37); BLOOD UREA NITROGEN 20 mg/dL (7-20); BUN/CREATININE RATIO 25 (6-20); CALCIUM 10.8 mg/dL (8.5-10.1); CARBON DIOXIDE 27 mmol/L (21-32); CHLORIDE 102 mmol/L (98-107); CREATININE 0.8 mg/dL (0.6-1.0); GFR 76.9; GLUCOSE 110 mg/dL (70-99); POTASSIUM 3.5 mmol/L (3.5-5.1); SODIUM 141 mmol/L (136-145); TOTAL BILIRUBIN 0.4 mg/dL (0.2-1.0); TOTAL PROTEIN 8.6 g/dL (6.4-8.2)
[2017-03-15 09:05] LABS: TROPONINI < 0.017 ng/mL (0.000-0.055)
[2017-03-15] MEDS: IOHEXOL 300 MG/ML 100ML VIAL. IV (09:18)
== END 2017-03-15 11:39 | disposition home or self-care (01) ==
LOC: ER 07:44
DX: S09.90XA Unspecified injury of head, initial encounter (principal); S19.9XXA Unspecified injury of neck, initial encounter; M54.5 Low back pain; I10 Essential (primary) hypertension; V89.2XXA Person injured in unspecified motor-vehicle accident, traffic, initial encounter; Y93.89 Activity, other specified; Y99.8 Other external cause status; Y92.488 Other paved roadways as the place of occurrence of the external cause
CPT/HCPCS: 36415; 70450; 71260; 72125; 74177; 80053; 84484; 85025; 85610; 85730; 93005; 96361; 96374; 99285-25; J3010; J7030; Q9967

== ENCOUNTER 2018-11-11 20:24 | Emergency (ER) | payer MEDICARE, OTHER ==
[~2018-11-11] VITALS: Ht 147.3 cm; Wt 65.8 kg
[~2018-11-11 20:24] MED LIST: AMLO10TA8 PO; ATEN1TAB3 PO; CYCL5TAB PO; HYDR-2145 PO; HYDR-3164 PO; IBUP-1007 PO; IBUP200C9 PO; LOSA1TAB22 PO; VALS320T2 PO
[2018-11-11 21:59] VITALS: BP 148/88
[2018-11-12] MEDS ORDERED: FLUORESCEIN OPHTH TEST STRIP. OD ONE (00:30)
[2018-11-12] MEDS ORDERED: TETRACAINE 0.5% OPHTH SOLUTION 4ML BOTTLE. OD ONE (00:30)
[2018-11-12] MEDS ORDERED: ERYT1OIN6 RIGHTEYE (00:45)
[2018-11-12] MEDS ORDERED: HYDR-2761 PO (00:45)
--- NOTE | 2018-11-12 00:47 | PHYS DOC ---
Past Medical History Past Medical History: GERD, High Cholesterol, Hypertension Past Surgical History: Additional Past Surgical Histo: BILAT CARPAL TUNNEL SX Alcohol Use: None Drug Use: None Adult General Chief Complaint Chief Complaint: EYE PROBLEMS HPI HPI Patient is a 48 year old female, accompanied by her nephew, who presents to the emergency department with complaints of right eye pain and blurred vision after rubbing her eyes while doing some gardening today. She reports that the pain is a 5 out of 10 on the pain scale, there are no alleviating or exacerbating factors. ROS Patient denies any fever, cough, sore throat, ear pain, congestion, nausea, vomiting, diarrhea, or headache. She denies any drainage or crusting of her eye. She denies any known injury to her eye. All other ROS is neg unless otherwise noted in HPI. Review of Systems Review of Systems See Above Current Medications Current Medications Current Medications Medications (Trade) Dose Ordered Sig/Darleen Start Time Stop Time Status Last Admin Dose Admin Acetaminophen/ Hydrocodone Bitart (Lortab 5/325) 1 tab 1X ONCE 11/12/18 00:45 11/12/18 00:46 UNV Erythromycin (Romycin) 0.5 inch 1X ONCE 11/12/18 00:45 11/12/18 00:46 UNV Fluorescein Sodium (Ful-Melissa) 1 strip 1X ONCE 11/12/18 00:30 11/12/18 00:31 DC 11/12/18 00:35 1 STRIP Tetracaine HCl (Tetracaine) 1 drop 1X ONCE 11/12/18 00:30 11/12/18 00:31 DC 11/12/18 00:35 1 DROP Allergies Allergies Allergies Coded Allergies Type Severity Reaction Last Updated Verified No Known Drug Allergies 09/22/14 No Physical Exam Physical Exam See Above Constitutional: Well developed, well nourished, no acute distress, non-toxic appearance. [] HENT: Normocephalic, atraumatic, bilateral external ears normal, nose normal. [] Eyes: PERRLA, EOMI, conjunctiva normal, no discharge. [] Neck: Normal range of motion, no stridor. [] Cardiovascular:Heart rate regular rhythm Lungs & Thorax: Respirations even and unlabored, no retractions, no respiratory distress Skin: Warm, dry, no erythema, no rash. [] Extremities: No cyanosis, ROM intact Neurologic: Alert and oriented X 3, no focal deficits noted. [] Psychologic: Affect normal, judgement normal, mood normal. [] Current Patient Data Vital Signs Vital Signs Date Time Temp Pulse Resp B/P (MAP) Pulse Ox O2 Delivery O2 Flow Rate FiO2 11/11/18 21:59 97.7 73 18 148/88 (108) 98 Room Air 97.7 EKG EKG [] Radiology/Procedures Radiology/Procedures Using tetracaine and fluroscein the patient's right eye was examined under Wood's lamp and an area of uptake between 7:00 and 8:00 was noted to the cornea. Patient's ocular symptoms have stabilized while they have been evaluated in the department and are appropriate for outpatient work up. No evidence of ruptured globe, retinal detachment, acute angle closure glaucoma, or deep space infection. Plan for 24 hour ophthalmologic follow up. Course & Med Decision Making Course & Med Decision Making Pertinent Labs and Imaging studies reviewed. (See chart for details) Diagnosis: Right eye corneal abrasion R eye was examined using tetracaine and fluorescein as described under procedures. A corneal abrasion was noted between 7:00 and 8:00 to the patient's right eye. Erythromycin eye ointment and hydrocodone were ordered in the department. Visual acuities were the same in both eyes. Prescription written for erythromycin eye ointment and hydrocodone. Patient instructed to follow-up with an eye doctor in the next 24 hours to have her eye reexamined. Return to the ER if symptoms worsen. Patient verbalized an understanding of home care, medications, follow-up, and return to ED instructions and was in agreement with the plan of care. [] Dragon Disclaimer Dragon Disclaimer This electronic medical record was generated, in whole or in part, using a voice recognition dictation system. Departure Departure Impression: Primary Impression: Injury of conjunctiva and corneal abrasion without foreign body, right eye, initial encounter Disposition: 01 HOME, SELF-CARE Condition: STABLE Referrals: HARRY DE LEON MD (PCP) Isabel VELASCO MD Patient Instructions: Eye - Corneal Abrasion, [id number] Additional Instructions: Fill the prescriptions and use them as directed. Follow-up with Dr. Velasco in 24 hours. Return to the ER if your symptoms worsen. Scripts Hydrocodone Bit/Acetaminophen (HYDROCODONE-APAP 5-325 ) 1 Tab Tablet 1 TAB PO PRN Q6HRS PRN for PAIN for 3 Days, #12 TAB 0 Refills Prov: AMBROSE GRANDA APRN 11/12/18 Erythromycin Base (Erythromycin) 1 Gm Oint...g. 0.5 INCH RIGHTEYE QID for 5 Days, #1 TUBE 0 Refills Prov: AMBROSE GRANDA APRN 11/12/18 AMBROSE GRANDA OTM CONSULTANT Nov 12, 2018 00:47
[2018-11-12] MEDS ORDERED: HYDROcodone/APAP 5/325MG 1 TAB TABLET PO ONE ×2 (01:00)
[2018-11-12] MEDS ORDERED: ERYTHROMYCIN 0.5% OPHTH OINTMENT 1GM TUBE. OD ONE ×2 (01:00)
== END 2018-11-12 01:06 | disposition home or self-care (01) ==
LOC: ER 20:24
DX: S05.01XA Injury of conjunctiva and corneal abrasion without foreign body, right eye, initial encounter (principal); K21.9 Gastro-esophageal reflux disease without esophagitis; E78.00 Pure hypercholesterolemia, unspecified; I10 Essential (primary) hypertension; Z98.890 Other specified postprocedural states; X58.XXXA Exposure to other specified factors, initial encounter; Y93.H2 Activity, gardening and landscaping; Y92.89 Other specified places as the place of occurrence of the external cause; Y99.8 Other external cause status
CPT/HCPCS: 99284

== ENCOUNTER → 2018-11-24 | Outpatient (CLI) | payer MEDICARE, OTHER ==
[2018-11-11 21:59] VITALS: BP 148/88
[~2018-11-24] MED LIST changes: +ERYT1OIN6 RIGHTEYE; +HYDR-2761 PO
--- NOTE | 2018-11-26 18:32 | RAD ---
DATE: 11/24/2018 EXAM: MAMMO MARY SCREENING BILATERAL HISTORY: Routine screening COMPARISON: No prior exams are available. This is the baseline. This study was interpreted with the benefit of Computerized Aided Detection (CAD). Breast Density: SCATTERED The breast parenchyma shows scattered fibroglandular densities. Breast parenchyma level B. FINDINGS: No suspicious calcification, mass, or distortion. Left axillary lymph nodes are present and benign in appearance. IMPRESSION: Benign. BI-RADS CATEGORY: 1 NEGATIVE RECOMMENDED FOLLOW-UP: 12M 12 MONTH FOLLOW-UP PQRS compliance statement: Patient information was entered into a reminder system with a target due date in one year for the next mammogram. Mammography is a sensitive method for finding small breast cancers, but it does not detect them all and is not a substitute for careful clinical examination. A negative mammogram does not negate a clinically suspicious finding and should not result in delay in biopsying a clinically suspicious abnormality. "Our facility is accredited by the [employer] Mammography Program."
== END | disposition home or self-care (01) ==
LOC: MAMMO 07:45
PROVIDERS: ATTEND Family Medicine
DX: Z12.31 Encounter for screening mammogram for malignant neoplasm of breast (principal)
CPT/HCPCS: 77063; 77067